=== PATIENT | male | born 1960 | race African-American/Black ===

== ENCOUNTER → 2021-09-05 | Outpatient (CLI) | payer OTHER ==
[~2021-09-05] VITALS: Ht 167.6 cm; Wt 89.7 kg
[~2021-09-05] MED LIST: HCTZ 25MG TAB25 MG PO
[2021-09-05 10:15] VITALS: BP 146/87; PULSE 65; TEMP 98
--- NOTE | 2021-09-05 11:09 | NUR ---
Dr Horton into talk with pt. Unable to obtain biopsy due to increased risk. Biopsy canceled. Pt back to holding area. Int removed. Catheter tip intact and 2x2 and coban to site. Pressure per coban. Pts to room. Pt up to get dressed. Pt and escorted to elevator.
== END ==
LOC: COL.RAD 09:03
DX: R91.1 Solitary pulmonary nodule (principal)